=== PATIENT | male | born 1945 | race Caucasian/White ===

== ENCOUNTER → 2024-03-03 | Outpatient (CLI) | payer MEDICARE ==
--- NOTE | 2024-03-03 12:08 | CT ---
EXAMINATION TYPE: CT brain wo con DATE OF EXAM: 03/03/2024 COMPARISON: None HISTORY: dizziness CT DLP: [address] of the brain was performed. The ventricles, basal cisterns and sulci overlying the cerebral convexities demonstrate mild enlargem ent. There is no evidence for intracranial hemorrhage or sulcal effacement. There is decreased attenuation about the periventricular white matter and deep white matter of both c erebral hemispheres, compatible with chronic small vessel ischemia. Differential diagnosis does inclu de demyelination. No mass effects are seen.No midline shift. Osseous calvarium is intact. If symptoms persist consider MRI. IMPRESSION: 1. Age related atrophic and chronic small vessel ischemic change without acute intracranial process s een at this time.
== END | disposition home or self-care (01) ==
LOC: RADCTMAIN 11:44
PROVIDERS: ATTEND Family Medicine
DX: I67.82 Cerebral ischemia (principal); R42 Dizziness and giddiness; R26.81 Unsteadiness on feet; Z91.81 History of falling
CPT/HCPCS: 70450

== ENCOUNTER → 2024-09-03 | Outpatient (CLI) | payer MEDICARE ==
--- NOTE | 2024-09-03 10:21 | MR ---
EXAMINATION TYPE: MR cspine/lspine wo con DATE OF EXAM: 09/03/2024 8:43 AM COMPARISON: None. CLINICAL INDICATION: Male, 79 years old with history of M54.32 sciatica, Neck pain and back pain, LUE /LLE radiculopathy. Hx lumbar laminectomy. IV Contrast: cc (None if empty) TECHNIQUE: Multiplanar, multisequence imaging of the cervical spine and lumbar spine is performed wit hout IV contrast. FINDINGS: MRI cervical spine: The craniovertebral junction relationships and prevertebral soft tissues are normal. The cervical vertebral segments are normal in height and alignment and there is no fracture or sublux ation. There is circumferential disc bulge from C3 through through C7. There is a moderate broad-bas ed disc protrusion at the C5-6 discs to the right of midline resulting in moderate mass effect on the right anterolateral aspect of the thecal sac. Secondary to disc bulge and there is mild cervical sarita nosis at the C3-4 level. Secondary to ligamentum flavum thickening at the C1/C2 level there is mild cervical stenosis. The cervical cord is normal in size and signal intensity. There is multilevel neural foraminal stenosis as follows; mild to moderate at C3-4 on the right, mild at C5-6 and C6-7 bilaterally. MRI lumbar spine. The lumbar vertebral segments are normal in height and alignment and there is no fracture or subluxat ion. There is moderate degenerative disc disease from L1 to S1 where there is moderate disc space narrowin g, loss of signal intensity, circumferential disc bulge and spondylosis. There is no lumbar disc felipe iation. Secondary to circumferential disc bulge, facet hypertrophy and thickening of the ligamentum flavum, t here is moderate spinal stenosis at the L1-2 and L3-4 levels. There is mild spinal stenosis at the L2 -3 level and moderate to severe spinal stenosis at the L4-5 level.. There is severe neural foraminal stenosis at the L3-4, L4-5 and L5-S1 levels on the right, mild to mo derate neuroforaminal stenosis at the L1-2 and L2-3 levels on the right, severe neuroforaminal stenos is at the L2-3, L3-4 and L4-5 and L5-S1 levels on the left and moderate neural foraminal stenosis at the L1-2 level on the left.. IMPRESSION: Cervical spine: Mild degenerative disc disease from C3 through C7, broad-based herniation of the C5-6 level on the right, mild cervical stenosis at the C1-2 and C3-4 levels and mild neural foraminal sarita nosis at multiple levels as described above. Lumbar spine: Moderate to multilevel degenerative disease from L1 to S1, multilevel spinal stenosis moderate to severe at the L4-5 level, multilevel bilateral neural foraminal stenosis severe at multip le levels as described above. [facility], , 09/03/2024 10:19 AM
== END | disposition home or self-care (01) ==
LOC: RADMRIMAIN 07:09
PROVIDERS: ATTEND Family Medicine
DX: M51.16 Intervertebral disc disorders with radiculopathy, lumbar region (principal); M50.122 Cervical disc disorder at C5-C6 level with radiculopathy; R26.81 Unsteadiness on feet; Z91.81 History of falling; M48.02 Spinal stenosis, cervical region; M99.73 Connective tissue and disc stenosis of intervertebral foramina of lumbar region
CPT/HCPCS: 72141; 72148

== ENCOUNTER → 2025-02-25 | Outpatient (CLI) | payer MEDICARE ==
--- NOTE | 2025-02-25 11:34 | XR ---
EXAMINATION TYPE: XR chest 2V DATE OF EXAM: 02/25/2025 11:23 AM COMPARISON: None. CLINICAL INDICATION: Male, 79 years old with history of J44.9 COPD, TECHNIQUE: XR chest 2V view(s) obtained. FINDINGS: The heart size is normal. The pulmonary vasculature is normal. The lungs are clear. IMPRESSION: 1. No acute pulmonary process. [facility], , 02/25/2025 11:31 AM
== END | disposition home or self-care (01) ==
LOC: RADXRMAIN 10:42
PROVIDERS: ATTEND Family Medicine
DX: J44.9 Chronic obstructive pulmonary disease, unspecified (principal)
CPT/HCPCS: 71046